=== PATIENT | male | born 1935 | race African-American/Black ===

== ENCOUNTER 2018-04-10 08:31 | Day surgery (SDC) | payer MEDICARE ==
[~2018-04-10 08:31] MED LIST: BUPIVACAINE HCL 0.75% INJ/PF (7.5 MG/1 ML) 10 ML SDV OD PRN; LIDOCAINE 4% INJ/PF (40 MG/ML) 5 ML AMPUL OD PRN; MIDAZOLAM 2 MG/2 ML INJ ONE
[2018-04-10] MEDS: KETOROLAC TROMETHAMINE 0.45% 4 DROP/0.4 ML DROPERETTE OD PRN ×2 (08:54→10:29)
[2018-04-10] MEDS: CYCLOPENTOLATE 0.2%/PHENYLEPHRINE 1% OPH SOLN 2 ML OD PRN ×3 (08:54→09:14)
[2018-04-10] MEDS: BESIFLOXACIN HCL 0.6% OPH SUSP 5 ML BOTTLE OD PRN ×4 (08:54→09:51)
[2018-04-10] MEDS: TROPICAMIDE 1% OPH SOLN 3 ML OD PRN ×3 (08:54→09:14)
[2018-04-10] MEDS: TETRACAINE HCL 0.5% OPH SOLN 0.6 ML DROPERETTE OD PRN ×2 (08:54→09:14)
[2018-04-10] MEDS: EPINEPHRINE INJ/PF 1 MG/1 ML AMPULE ONE ×2 (09:35)
[2018-04-10] MEDS: LIDOCAINE 1%/PHENYLEPHRINE 1.5% 1 ML VIAL ONE ×2 (09:37)
[2018-04-10] MEDS: CHONDR SU A NA/HYALUR INTRAOC KIT (SURGICARE) ONE ×2 (09:39)
--- NOTE | 2018-04-10 11:05 | [facility] OPERATIVE REPORT E ---
[facility] NAME: MICHAEL BARRON AGE: 82Y DATE OF SURGERY: 04/10/2018 ROOM: [facility] Operative Report PREOPERATIVE DIAGNOSIS: CATARACT, RIGHT EYE. POSTOPERATIVE DIAGNOSIS: CATARACT, RIGHT EYE. PROCEDURE PERFORMED: PHACOEMULSIFICATION WITH POSTERIOR CHAMBER INTRAOCULAR LENS, RIGHT EYE. SURGEON: ROBERT FLORES MD ANESTHESIA: TOPICAL WITH MAC. INDICATIONS FOR SURGERY: Difficulty reading road signs. Best corrected visual acuity 20/60. PROCEDURE: The patient was brought to the Operating Room and placed on the operative table. Following tetracaine drops, topical anesthesia was administered. This consisted of instrument wipe pledgets soaked in a solution of 4% Xylocaine mixed with 0.75% Marcaine in a 1:2 ratio. A 2 x 1 cm pledget was placed in the superior fornix. A 1 x 1 cm pledget was placed in the inferior fornix. The eye was patched shut for 5 minutes. The patch was removed. The eye was sterilely prepped and draped in the usual manner. Lid speculum was placed in the eye. The pledgets were removed. 4-0 black silk sutures were placed around the superior and the inferior rectus muscles to be used as traction. A conjunctival peritomy was made at the 10 o'clock position. Hemostasis was obtained with bipolar cautery. A posterior limbal groove was created using a crescent knife and dissected anteriorly towards the cornea. A sharp point blade was used to create a paracentesis site at the 2 o'clock position. A 2.4 mm keratome was used to enter the anterior chamber through the groove. Viscoelastic was injected into the anterior chamber. An anterior capsulotomy was performed using Utrata forceps in a capsulorrhexis fashion. Hydrodissection and hydrodelineation were performed. Phacoemulsification was performed in tacadi-sod-alcecpa technique. A total of 58 seconds phaco time was used. Following this, the I/A unit was used to remove residual cortex. Viscoelastic was injected into the capsular bag. Intraocular lens model [id number], 20.5 diopters, serial [id number] was placed in the capsular bag. The I/A unit was used to remove residual viscoelastic. The wound was seen to be watertight under high and low pressure, and no sutures were placed. The intraocular lens was well centered. The pressure was adjusted in the eye to normal pressure. The 4-0 black silk sutures and lid speculum were removed. The eye was shielded after Besivance drops were placed. The patient tolerated the procedure well and was sent to the Recovery Room in good condition. DICTATING PHYSICIAN: ROBERT FLORES M.D. DICTATING PHYSICIAN: ROBERT FLORES M.D. [id number] PHY#: [id number] ID: [id number] JOB#: [id number] ACCT: [id number] cc:ROBERT FLORES M.D. >
[2018-04-10] MEDS ORDERED: BRIMONIDINE TARTRATE 0.2% OPH SOLN 5 ML ONE (11:12)
[2018-04-10] MEDS ORDERED: BRIMONIDINE TARTRATE 0.2% OPH SOLN 5 ML OD ONE (11:15)
--- NOTE | 2018-04-10 11:16 | [facility] DISCHARGE SUMMARY E ---
[facility] Discharge Summary NAME: MICHAEL BARRON AGE: 82Y ADMITTED: 04/10/2018 DISCHARGED: FINAL DIAGNOSIS: Cataract, right eye. HOSPITAL COURSE: The patient is a 74-year-old gentleman who underwent uneventful cataract extraction with intraocular lens implant, right eye on 04/10/2018. He will be discharged to home. He is instructed to resume preoperative medications, take Tylenol as needed for discomfort, to use Lotemax, PROLENSA, and Vigamox at 3 p.m. and 8 p.m., and to use Brimonidine and latanoprost at night. To followup in my office in 1 day. DICTATING PHYSICIAN: ROBERT FLORES M.D. [id number] PHY#: [id number] ID: [id number] JOB#: [id number] ACCT: [id number] cc:ROBERT FLORES M.D. >
== END 2018-04-10 10:47 | disposition home or self-care (01) ==
LOC: SC 08:31
PROVIDERS: ATTEND Ophthalmology
DX: H25.811 Combined forms of age-related cataract, right eye (principal); Z96.1 Presence of intraocular lens; H40.1132 Primary open-angle glaucoma, bilateral, moderate stage; M19.90 Unspecified osteoarthritis, unspecified site; I10 Essential (primary) hypertension; Z79.899 Other long term (current) drug therapy; Z79.82 Long term (current) use of aspirin; Z85.46 Personal history of malignant neoplasm of prostate
CPT/HCPCS: 66984; V2632; J2250; J3490 ×4; A9270; J0171; J2370; 142

== ENCOUNTER → 2018-08-21 | Outpatient (CLI) | payer MEDICARE ==
--- NOTE | 2018-08-21 16:29 | RADIOLOGY REPORT (SQ) ---
EXAM DESCRIPTION: CAROTID DOPPLER COMPLETED DATE/TIME: 08/21/2018 4:18 pm REASON FOR STUDY: LT EYE VENOUS ENGORGEMENT H34.822 VENOUS ENGORGEMENT, LEFT EYE COMPARISON: None. TECHNIQUE: Grayscale ultrasound, Doppler velocity and spectra, and color Doppler images acquired of the extra-cranial carotid and vertebral arteries. Images stored on PACS. LIMITATIONS: None. FINDINGS: RIGHT CAROTID CCA Velocities: Within normal limits. RIght common carotid artery peak systolic velocity 0.73 m/sec ICA Velocities Peak systolic 0.90 m/s. End diastolic 0.22 m/s. Proximal ICA/CCA peak systolic ratio 1.7. There is calcific plaque at the right carotid bifurcation shadowing the origin of the right ICA. Imm ediately distal to the shadowing plaque, velocities suggest against any flow significant stenosis LEFT CAROTID CCA Velocities: Within normal limits. Left common carotid artery peak systolic velocity 0.7 m/sec ICA Velocities Peak systolic 0.58 m/s. End diastolic 0.11 m/s. Proximal ICA/CCA peak systolic ratio 1.9. No flow significant stenosis of the left proximal internal carotid artery. Minimal non calcific plaq ue at the left carotid bifurcation VERTEBRAL ARTERIES: Antegrade flow. Normal waveforms. SUBCLAVIAN ARTERIES: Not examined OTHER: No other significant finding. IMPRESSION: NO HEMODYNAMICALLY SIGNIFICANT STENOSIS. COMMENT: Quality ID #[id number]: Velocity criteria are extrapolated from the diameter data as defined by t he Society of Radiologists in Ultrasound Consensus Conference. Radiology 2003: 229; 340-346. TECHNICAL DOCUMENTATION: JOB ID: [id number] [employer]- All Rights Reserved Reading location - IP/workstation name: [email or web address]
== END ==
LOC: SP 15:10
PROVIDERS: ATTEND Ophthalmology
DX: H34.822 Venous engorgement, left eye (principal)
CPT/HCPCS: 93880

== ENCOUNTER → 2020-08-10 | Outpatient (CLI) | payer MEDICARE ==
--- NOTE | 2020-08-10 13:23 | RADIOLOGY REPORT (SQ) ---
EXAM DESCRIPTION: VENOUS BILATERAL LOWER IMAGES COMPLETED DATE/TIME: 08/10/2020 1:09 pm REASON FOR STUDY: EDEMA R60.0 LOCALIZED EDEMA COMPARISON: None. TECHNIQUE: Dynamic and static kohler scale and color images acquired of both lower extremity venous sy stems. Selected spectral images acquired with additional compression and augmentation maneuvers. Imag es stored on PACS. LIMITATIONS: None. FINDINGS: RIGHT LEG COMMON FEMORAL AND FEMORAL: Normal phasicity, compression and augmentation. No visualized echogenic m aterial on kohler scale. No defects on color images. POPLITEAL: Normal compression and augmentation. No visualized echogenic material on kohler scale. No de fects on color images. CALF VESSELS: Normal compression and augmentation. No visualized echogenic material on kohler scale. No defects on color image. GSV AND SSV: Normal compression. No visualized echogenic material on kohler scale. No defects on color images. ANY DEEP VENOUS INSUFFICIENCY: Not evaluated. ANY EVIDENCE OF POPLITEAL CYST: No. OTHER: No other significant finding. LEFT LEG COMMON FEMORAL AND FEMORAL: Normal phasicity, compression and augmentation. No visualized echogenic m aterial on kohler scale. No defects on color images. POPLITEAL: Normal compression and augmentation. No visualized echogenic material on kohler scale. No de fects on color images. CALF VESSELS: Normal compression and augmentation. No visualized echogenic material on kohler scale. No defects on color images. GSV AND SSV: Normal compression. No visualized echogenic material on kohler scale. No defects on color images. ANY DEEP VENOUS INSUFFICIENCY: Not evaluated. ANY EVIDENCE POPLITEAL CYST: No. OTHER: No other significant finding. IMPRESSION: 1. NO EVIDENCE DVT OR SVT IN EITHER LEG. TECHNICAL DOCUMENTATION: JOB ID: [id number] [employer]- All Rights Reserved Reading location - IP/workstation name: [email or web address]
== END ==
LOC: SP 10:21
PROVIDERS: ATTEND Internal Medicine Geriatric Medicine
DX: R60.0 Localized edema (principal)
CPT/HCPCS: 93970